=== PATIENT | female | born 1975 | race Caucasian/White ===

== ENCOUNTER 2017-12-17 05:31 | Day surgery (SDC) | payer OTHER ==
[~2017-12-17] VITALS: Ht 154.9 cm; Wt 52.2 kg
--- NOTE | ~2017-12-17 | O ---
[address] [place] [address] OPERATIVE REPORT Name: DAYDAY RODRIGUEZ Room #: DEP [facility].#: [id number] Admission: 12/17/17 Attend Phys: Adria Conner MD Discharge: 12/17/17 Date of : 75 Report #: [id number] THIS REPORT FOR: //name// CC: Tariq Estes MD FAM unknown Adria Conner DATE OF SERVICE: 12/17/[address] Adria Conner and Dr. Tariq Estes. PREOPERATIVE DIAGNOSIS: Recurrent ventral incisional hernia. POSTOPERATIVE DIAGNOSIS: Recurrent ventral incisional hernia. PROCEDURE: Repair of a recurrent ventral incisional hernia with Ventralex ST hernia patch mesh. SURGEON: Adria Conner MD. ANESTHESIA: Local IV sedation. DESCRIPTION OF PROCEDURE: The patient was brought to the operating room and placed on operative table in the supine position. Sequential compression devices were in place for DVT prophylaxis. There was no indication for preoperative antibiotics. The patient underwent an IV sedation. The abdomen was then prepped and draped in a sterile fashion. Skin and subcutaneous tissue were then infiltrated with 0.5% Marcaine and 1% Xylocaine in a 1:1 mixture. A skin incision was then performed vertically in the midline through the previous incision scar using a #15 scalpel blade. Hemostasis obtained using electrocautery. Dissection was carried down through the subcutaneous tissue to the hernia sac and the fascia. The hernia sac was dissected free, opened and excised. There were at least 2 other small fascial defect superiorly and inferiorly from the main large defect. This was all opened into 1 large defect. This defect measured a good 3.5 x 3 cm in diameter. A small Ventralex mesh patch was then placed intraabdominally and secured circumferentially transfascially using interrupted horizontal mattress 0 Prolene sutures. The fascia was then closed over the mesh using interrupted [id number] #1 PDS suture. The tails of the mesh were cut and then secured superiorly and inferiorly using 2-0 Vicryl sutures. The umbilicus was then tacked to the fascia using a 2-0 chromic suture. The deep and superficial subcutaneous tissue was then reapproximated using simple interrupted 2-0 chromic sutures. Skin was then closed using running 4-0 subcuticular Vicryl stitch. The wound was then dressed with Dermabond, Telfa, 4 x 4 gauze, sponge and tape. The patient was then awakened from the IV sedation, taken to recovery room in good condition. [address] [address] OPERATIVE REPORT Name: DAYDAY RODRIGUEZ Room #: DEP [facility]#: [id number] Admission: 12/17/17 Attend Phys: Adria Conner MD Discharge: 12/17/17 Date of : 75 Report #: [id number] Estimated blood loss was approximately 5 mL and the patient tolerated procedure well. All sponge, lap and instrument counts correct x 2. <ELECTRONICALLY SIGNED> By: Adria Conner MD 12/24/17 1625 1524 1614 Adria Conner MD /nt
--- NOTE | ~2017-12-17 | PATH ---
[facility] [address] [place] [address] PATHOLOGY RPT PROCEDURE Name: DAYDAY RODRIGUEZ Room #: DEP [facility] M..#: [id number] Admission: 12/17/17 Date of : 75 Discharge: 12/17/17 Report #: [id number] Path Case #: [id number] [facility] Accession Number: [id number] . 01 Material submitted: . VENTRAL HERNIA SACK . 01 Clinical history: . Ventral hernia . 02 Diagnosis: "Ventral hernia sac," hernia repair: - Vascularized fibroadipose connective tissue with mesothelial lining consistent with a hernia sac showing focal reactive mesothelial hyperplasia and synthetic/suture material with foreign body type granulomatous response. (CLW:; 12/20/17) QRQ/12/20/2017 . 02 Electronically signed: . Elyssa Cruz MD, Pathologist NPI- [id number] . 01 Gross description: . Received in formalin labeled "Fore, Dayday, ventral hernia sac," are 2 pieces of fibro-membranous tissue with attached fibroadipose tissue measuring 3.0 x 1.2 x 1.1 cm in aggregate dimensions. No nodules or lesions are identified. Sales Inspector tissue is submitted in cassette A1. (TSD; 12/17/2017) TOB/TOB . 02 Pathologist provided ICD-10: K43.9 . 02 CPT . 250251 Performed at: [address], [place] [id number] MD Carlton Munguia MD Phone: [phone] Performed at: [address] [id number] MD Kathryn Hope MD Phone: [phone]
--- NOTE | ~2017-12-17 | H ---
[facility] [place] [address] HISTORY AND PHYSICAL Name: DAYDAY RODRIGUEZ Room #: 150-1 [facility]..#: [id number] Admission: 12/17/17 Attend Phys: Adria Conner MD Discharge: Date of : 75 Report #: [id number] THIS REPORT FOR: //name// CC: FAM unknown Adria Conner DATE OF SERVICE: 12/17/2017 SURGICAL HISTORY AND PHYSICAL PATIENT OF: Dr. Adria Conner and Dr. Tariq Estes. CHIEF COMPLAINT: Abdominal bulge. HISTORY OF PRESENT ILLNESS: The patient is a 42-year-old white female who had an umbilical hernia repaired about 8 years ago. She stated a couple of months after she had it fixed, she re-developed a bulge and has had some burning and itching in the area recently. She does admit to some constipation, but no urinary changes. She has had a negative colonoscopy in the past. She states that she wears tape over this area to help protect it. She saw the surgeon who originally did her hernia repair several months after when she noticed the recurrence and the surgeon was not recommending any further surgery, but did say it was available. The patient did not feel comfortable or confident proceeding with that surgeon's care and she has been dealing with it now for about 7-8 years. She was seen in the office and stated that she does know that she has a diastasis recti and realizes that is not a surgical disease, but would like to have her recurrent hernia fixed. The patient is a physical therapist. After full discussion with the patient the diagnosis, prognosis and treatment options, she wished to proceed with surgery. PAST MEDICAL HISTORY: Ventral hernia repair in 2009 and three C-sections. MEDICATIONS: Sertraline. ALLERGIES: PENICILLIN. FAMILY HISTORY: Noncontributory. SOCIAL HISTORY: She does not smoke or drink alcohol. 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 REVIEW OF SYSTEMS: Pertinent positives as above. Full review of systems otherwise negative. PHYSICAL EXAMINATION: GENERAL: Well-developed, well-nourished white female, in no acute distress. [facility] [address] [place] [address] HISTORY AND PHYSICAL Name: DAYDAY RODRIGUEZ Room #: 150-1 [facility] M.R.#: [id number] Admission: 12/17/17 Attend Phys: Adria Conner MD Discharge: Date of : 75 Report #: [id number] VITAL SIGNS: Stable. She is afebrile. HEENT: Sclerae are nonicteric. Mucous membranes moist and pink. NECK: There is no adenopathy, no thyromegaly. LUNGS: Clear to auscultation bilaterally. Normal excursion. CARDIOVASCULAR EXAMINATION: Regular rate and rhythm. No murmurs, S3 or S4. Normal PMI. ABDOMEN: Soft, flat and nontender. There is a well-healed vertical periumbilical incision scar with a supraumbilical recurrent ventral hernia, which is partially reducible. She has diastasis recti. No other organomegaly or masses. EXTREMITIES: No clubbing, cyanosis or edema. NEUROLOGICAL EXAMINATION: Intact, with a clear mental status. IMPRESSION: A 42-year-old white female with a recurrent ventral supraumbilical hernia with diastasis recti. I fully and carefully discussed with the patient the diagnosis, prognosis and treatment options and she states she understands and wishes to proceed with surgery. PLAN: We will perform repair of her recurrent ventral supraumbilical hernia, possible mesh under local IV sedation as an outpatient. The procedure and its risks, benefits and possible complications including the use of mesh were fully discussed with the patient. She states she understands and agrees with the proposed surgery. <ELECTRONICALLY SIGNED> By: Adria Conner MD 12/17/17 1533 1111 1209 Adria Conner MD /nt
[~2017-12-17 05:31] MED LIST: FISH OIL 1,4001 EACH PO; MULTIVITAMINS PO; ZOLOFT50 MG PO
[2017-12-17 13:54] VITALS: BP 102/70
[2017-12-17] MEDS ORDERED: HYDROCODONE-AP1 EAC6 PO (15:28)
[2017-12-17 15:36] VITALS: BP 102/70
== END 2017-12-17 16:06 | disposition home or self-care (01) ==
LOC: TBA 05:31 → OR 05:31
DX: K43.2 Incisional hernia without obstruction or gangrene (principal); F41.8 Other specified anxiety disorders; Z85.828 Personal history of other malignant neoplasm of skin; Z98.890 Other specified postprocedural states; Z88.0 Allergy status to penicillin; Z79.899 Other long term (current) drug therapy; Z79.891 Long term (current) use of opiate analgesic
CPT/HCPCS: 50010; 50101; 50119; 50386; 50417; 54118; 56524; 56526; 62110; 62850; 70005